=== PATIENT | female | born 1965 | race Two or more races ===

== ENCOUNTER 2019-04-18 13:22 | Day surgery (SDC) | payer OTHER ==
[2019-04-18] MEDS ORDERED: LIDOCAINE 2% (SDV) 5 ML INJ (16:32)
[2019-04-18] MEDS ORDERED: PROPOFOL 40 ML (16:32)
[2019-04-18] MEDS ORDERED: ONDANSETRON 4 MG INJ IV (17:30)
[2019-04-18] MEDS ORDERED: FENTAnyl 50 MCG/ML VIAL IV (17:30)
== END 2019-04-18 18:39 | disposition home or self-care (01) ==
LOC: GIL 13:22
DX: Z12.11 Encounter for screening for malignant neoplasm of colon (principal); K64.8 Other hemorrhoids; E11.9 Type 2 diabetes mellitus without complications; I10 Essential (primary) hypertension; E78.00 Pure hypercholesterolemia, unspecified
CPT/HCPCS: 45378; 82962; 84703